=== PATIENT | male | born 1975 | race African-American/Black ===

== ENCOUNTER → 2017-09-20 | Outpatient (CLI) | payer MEDICAID | LOC: M OUTALCOH 07:58 | DX: F10.20 Alcohol dependence, uncomplicated (principal) ==

== ENCOUNTER 2017-09-25 03:10 | Emergency (ER) | payer OTHER, MEDICAID ==
[2017-09-25 04:05] LABS: BASO % 0.2 % (0.0-1.0); EOS # 0.1 10^3/uL (0.0-0.50); EOS % 0.5 % (0.0-3.0); HEMATOCRIT 46.2 % (42.0-52.0); HEMOGLOBIN 14.9 g/dl (14.0-18.0); IMMATURE GRANULOCYTE % 0.6 % (0-3.0); LYMPH # 2.2 10^3/uL (1.5-4.5); LYMPH % 21.9 % (24.0-44.0); MEAN CORPUSCULAR HEMOGLOBIN 27.5 pg (27.0-33.0); MEAN CORPUSCULAR HGB CONC 32.3 g/dl (32.0-36.5); MEAN CORPUSCULAR VOLUME 85.2 fl (80.0-96.0); MONO # 0.5 10^3/uL (0.0-0.8); NEUTROPHILS # 7.2 10^3/uL (1.8-7.7); NEUTROPHILS % 71.8 % (36.0-66.0); PLATELET COUNT, AUTOMATED 154 10^3/uL (150-450); RED BLOOD COUNT 5.42 10^6/uL (4.30-6.10)
[2017-09-25] MEDS: ONDANSETRON 4MG/2ML VIAL (J2405) IV (04:13)
[2017-09-25] MEDS: MORPHINE 4 MG/ML 1ML VIAL (J2270) IV (04:14)
[2017-09-25] MEDS: NS 1,000 ML IV (04:14)
[2017-09-25 04:26] LABS: LACTIC ACID SEPSIS PROTOCOL 1.9 MMOL/L (0.4-2.0)
[2017-09-25 04:27] LABS: ALBUMIN/GLOBULIN RATIO 1.05 (1.00-1.93); ALKALINE PHOSPHATASE 80 U/L (45-117); ALT/SGPT 112 U/L (12-78); AMYLASE 121 U/L (25-115); ANION GAP 9 MEQ/L (8-16); AST/SGOT 50 U/L (7-37); BILIRUBIN,DIRECT 0.2 MG/DL (0.0-0.2); BILIRUBIN,TOTAL 0.5 MG/DL (0.2-1.0); BLOOD UREA NITROGEN 10 MG/DL (7-18); CALCIUM LEVEL 8.8 MG/DL (8.5-10.1); CARBON DIOXIDE LEVEL 31 MEQ/L (21-32); CHLORIDE LEVEL 104 MEQ/L (98-107); CREATININE FOR GFR 1.59 MG/DL (0.70-1.30); GLOMERULAR FILTRATION RATE > 60.0 (>60); GLUCOSE, FASTING 120 MG/DL (70-100); LIPASE 165 U/L (73-393); POTASSIUM SERUM 3.3 MEQ/L (3.5-5.1); SODIUM LEVEL 144 MEQ/L (136-145); TOTAL PROTEIN 7.8 GM/DL (6.4-8.2)
[2017-09-25] MEDS: KETAMINE HCL 200 MG/20 ML VIAL IV (05:47)
[2017-09-25] MEDS: PROPOFOL 200 MG/20 ML VIAL IV (05:48)
[2017-09-25] MEDS: POTASSIUM CHLORIDE 10 MEQ SR TABLET PO (07:00)
[2017-09-25 07:43] LABS: AMPHETAMINES LEVEL URINE NEGATIVE (NEGATIVE); BARBITURATES URINE NEGATIVE (NEGATIVE); BENZODIAZEPINES URINE NEGATIVE (NEGATIVE); CANNABINOIDS URINE NEGATIVE (NEGATIVE); COCAINE METABOLITE URINE NEGATIVE (NEGATIVE); METHADONE URINE NEGATIVE (NEGATIVE); OPIATES URINE POSITIVE (NEGATIVE); PHENCYCLIDINE URINE NEGATIVE (NEGATIVE)
== END 2017-09-25 07:53 | disposition home or self-care (01) ==
LOC: M ED 03:10
DX: S00.83XA Contusion of other part of head, initial encounter (principal); S53.101A Unspecified subluxation of right ulnohumeral joint, initial encounter; Y04.0XXA Assault by unarmed brawl or fight, initial encounter; Y92.009 Unspecified place in unspecified non-institutional (private) residence as the place of occurrence of the external cause; I10 Essential (primary) hypertension; F41.9 Anxiety disorder, unspecified
CPT/HCPCS: J2270

== ENCOUNTER → 2018-01-05 | Outpatient (CLI) | payer MEDICAID | LOC: M OUTALCOH 12:20 | DX: F10.20 Alcohol dependence, uncomplicated (principal) ==

== ENCOUNTER 2018-01-14 11:06 | Outpatient (RCR) | payer MEDICAID | END 2018-02-05 | LOC: M OUTALCOH 01-19 13:48 | DX: F10.20 Alcohol dependence, uncomplicated (principal) ==

== ENCOUNTER 2018-02-10 15:19 | Outpatient (RCR) | payer MEDICAID | END 2018-03-08 | LOC: M OUTALCOH 15:19 | DX: F10.20 Alcohol dependence, uncomplicated (principal) ==

== ENCOUNTER 2018-04-28 16:07 | Outpatient (RCR) | payer MEDICAID | END 2018-05-08 | LOC: M OUTALCOH 05-04 15:00 | DX: F10.20 Alcohol dependence, uncomplicated (principal) ==

== ENCOUNTER 2018-05-12 08:00 | Outpatient (RCR) | payer MEDICAID | END 2018-06-08 | LOC: M OUTALCOH 08:00 | DX: F10.20 Alcohol dependence, uncomplicated (principal) ==

== ENCOUNTER 2018-06-16 13:09 | Outpatient (RCR) | payer MEDICAID | END 2018-07-08 | LOC: M OUTALCOH 13:09 | DX: F10.20 Alcohol dependence, uncomplicated (principal) ==

== ENCOUNTER 2018-07-19 10:47 | Outpatient (RCR) | payer MEDICAID | END 2018-08-08 | LOC: M OUTALCOH 10:47 | PROVIDERS: ATTEND Psychiatry & Neurology Psychiatry | DX: F10.20 Alcohol dependence, uncomplicated (principal) ==

== ENCOUNTER 2018-08-25 08:49 | Outpatient (RCR) | payer MEDICAID | END 2018-09-08 | LOC: M OUTALCOH 08:49 | PROVIDERS: ATTEND Psychiatry & Neurology Psychiatry | DX: F10.20 Alcohol dependence, uncomplicated (principal) ==

== ENCOUNTER → 2019-04-24 | Outpatient (CLI) | payer MEDICAID | LOC: M OUTALCOH 09:07 | PROVIDERS: ATTEND Psychiatry & Neurology Psychiatry | DX: F10.20 Alcohol dependence, uncomplicated (principal) ==

== ENCOUNTER 2019-05-05 10:00 | Outpatient (RCR) | payer MEDICAID | END 2019-05-08 | LOC: M OUTALCOH 10:00 | PROVIDERS: ATTEND Psychiatry & Neurology Psychiatry | DX: Z03.89 Encounter for observation for other suspected diseases and conditions ruled out (principal) ==

== ENCOUNTER 2019-06-19 09:04 | Outpatient (RCR) | payer MEDICAID | END 2019-07-08 | LOC: M OUTALCOH 09:04 | PROVIDERS: ATTEND Psychiatry & Neurology Psychiatry | DX: Z03.89 Encounter for observation for other suspected diseases and conditions ruled out (principal) ==

== ENCOUNTER 2019-07-24 08:54 | Outpatient (RCR) | payer MEDICAID | END 2019-08-08 | LOC: M OUTALCOH 08:54 | PROVIDERS: ATTEND Psychiatry & Neurology Psychiatry | DX: Z03.89 Encounter for observation for other suspected diseases and conditions ruled out (principal) ==

== ENCOUNTER 2019-08-28 08:55 | Outpatient (RCR) | payer MEDICAID | END 2019-09-08 | LOC: M OUTALCOH 08:55 | PROVIDERS: ATTEND Psychiatry & Neurology Psychiatry | DX: Z03.89 Encounter for observation for other suspected diseases and conditions ruled out (principal) ==

== ENCOUNTER 2019-10-02 15:54 | Outpatient (RCR) | payer MEDICAID | END 2019-10-07 | LOC: M OUTALCOH 15:54 | PROVIDERS: ATTEND Psychiatry & Neurology Addiction Medicine | DX: Z03.89 Encounter for observation for other suspected diseases and conditions ruled out (principal) ==

== ENCOUNTER 2019-11-06 09:08 | Outpatient (RCR) | payer MEDICAID | END 2019-11-07 | LOC: M OUTALCOH 09:08 | PROVIDERS: ATTEND Psychiatry & Neurology Addiction Medicine | DX: Z03.89 Encounter for observation for other suspected diseases and conditions ruled out (principal) ==

== ENCOUNTER 2019-12-11 09:34 | Outpatient (RCR) | payer MEDICAID | END 2020-01-07 | LOC: M OUTALCOH 09:34 | PROVIDERS: ATTEND Psychiatry & Neurology Addiction Medicine | DX: Z03.89 Encounter for observation for other suspected diseases and conditions ruled out (principal) ==

== ENCOUNTER 2020-01-22 10:28 | Outpatient (RCR) | payer MEDICAID | END 2020-02-06 | LOC: M OUTALCOH 10:28 | PROVIDERS: ATTEND Psychiatry & Neurology Addiction Medicine | DX: Z03.89 Encounter for observation for other suspected diseases and conditions ruled out (principal) ==

== ENCOUNTER 2020-03-12 09:00 | Outpatient (RCR) | payer MEDICAID | END 2020-04-08 | LOC: M OUTALCOH 09:00 | PROVIDERS: ATTEND Psychiatry & Neurology Addiction Medicine | DX: Z03.89 Encounter for observation for other suspected diseases and conditions ruled out (principal) ==

== ENCOUNTER → 2021-01-02 | Outpatient (CLI) | payer OTHER ==
--- NOTE | 2021-01-02 10:12 | REP ---
INDICATION: INCREASING CREATNINE COMPARISON: None TECHNIQUE: Real time reyes scale ultrasound examination using curved array transducer. FINDINGS: Bilateral kidneys are normal in contour, size, echogenicity, and reniform shape. No hydronephrosis, nephrolithiasis, cystic or renal mass lesion. No perinephric fluid collection. Right kidney measures 9.7 x 4.8 x 4.9 cm. Left kidney measures 10.6 x 6.0 x 5.5 cm. Bladder is unremarkable and bilateral ureteral jets are identified. IMPRESSION: 1. Normal renal ultrasound. <Electronically signed by Raul Rosenberg > 01/02/21 [id number]
== END ==
LOC: M RAD 09:17
PROVIDERS: ATTEND Internal Medicine
DX: N18.9 Chronic kidney disease, unspecified (principal)

== ENCOUNTER 2022-01-07 18:52 | Emergency (ER) | payer OTHER ==
[~2022-01-07] VITALS: Ht 177.8 cm; Wt 99.7 kg
[2022-01-07 19:21] VITALS: BP 141/86
[2022-01-07] MEDS ORDERED: ALLO100T PO (19:21)
[2022-01-07] MEDS ORDERED: ROSU20TA5 PO (19:21)
[2022-01-07] MEDS ORDERED: FAMO10TA50 PO (19:21)
[2022-01-07] MEDS ORDERED: VENL1TAB35 PO (19:21)
[2022-01-07] MEDS ORDERED: METO1TAB32 PO (19:21)
[2022-01-07] MEDS ORDERED: TRAZ-189 PO (19:21)
== END 2022-01-07 20:49 | disposition home or self-care (01) ==
LOC: M ED 18:52
DX: S63.502A Unspecified sprain of left wrist, initial encounter (principal); X58.XXXA Exposure to other specified factors, initial encounter; Y92.018 Other place in single-family (private) house as the place of occurrence of the external cause; I10 Essential (primary) hypertension; E78.5 Hyperlipidemia, unspecified; Z79.899 Other long term (current) drug therapy

== ENCOUNTER → 2022-02-25 | Outpatient (CLI) | payer OTHER ==
[~2022-02-25] MED LIST: ALLO100T PO; FAMO10TA50 PO; METO1TAB32 PO; ROSU20TA5 PO; TRAZ-189 PO; VENL1TAB35 PO
== END ==
LOC: M PLAIMG 14:12
PROVIDERS: ATTEND Internal Medicine
DX: M25.532 Pain in left wrist (principal); Z96.698 Presence of other orthopedic joint implants; R93.6 Abnormal findings on diagnostic imaging of limbs